=== PATIENT | female | born 1985 | race Caucasian/White ===

== ENCOUNTER → 2016-12-07 | Outpatient (CLI) | payer OTHER ==
[2016-12-07 18:13] LABS: BASO # 0.3 K/mm3 (0.0-0.2); EOS # 0.1 K/mm3 (0.0-0.50); LARGE UNSTAINED CELL # 0.1 K/mm3 (0.0-0.4); LARGE UNSTAINED CELL % 1.3 % (0.0-4.0); LYMPH # 1.5 K/mm3 (1.5-4.5); LYMPH % 15.8 % (24.0-44.0); MEAN CORPUSCULAR HEMOGLOBIN 27.9 pg (27.0-33.0); MEAN CORPUSCULAR HGB CONC 32.3 g/dl (32.0-36.5); MEAN CORPUSCULAR VOLUME 86.3 fl (80.0-96.0); MONO # 0.4 K/mm3 (0.0-0.8); NEUTROPHILS # 6.7 K/mm3 (1.8-7.7); NEUTROPHILS % 74.9 % (36.0-66.0); PLATELET COUNT, AUTOMATED 217 k/mm3 (150-450); RED CELL DISTRIBUTION WIDTH 14.8 % (11.5-14.5)
== END ==
LOC: M SMT 09:55
PROVIDERS: ATTEND Specialist
DX: Z34.82 Encounter for supervision of other normal pregnancy, second trimester (principal)

== ENCOUNTER → 2017-02-16 | Outpatient (REF) | payer OTHER | LOC: M LAB REF 17:06 | PROVIDERS: ATTEND Obstetrics & Gynecology | DX: Z34.83 Encounter for supervision of other normal pregnancy, third trimester (principal) ==

== ENCOUNTER 2017-03-11 13:11 | Inpatient (IN) | payer OTHER ==
[~2017-03-11] VITALS: Ht 167.6 cm; Wt 105.0 kg
[2017-03-11] MEDS ORDERED: OMEP40CA2 PO (13:24)
[2017-03-11] MEDS ORDERED: PRENTAB55 PO (13:24)
[2017-03-11] MEDS ORDERED: RANITAB PO (13:24)
[2017-03-11 13:32] VITALS: BP 128/82
[2017-03-11] MEDS ORDERED: PENICILLIN G POTASSIUM IV 5 MU in D5W MINI-BAG PLUS 100 ML IV STA (13:51)
--- NOTE | 2017-03-11 14:45 | HPE ---
DATE OF ADMISSION: 03/11/2017 Moon is a 31-year-old 2, para 0-0-1-0. She is at 39-6/7 weeks gestation with an estimated date of confinement (EDC) of 03/12/2017 based on first trimester ultrasound. She presents to labor and delivery today after an add-on visit at the obstetrical office for complaint of spontaneous rupture of membranes. She reports that she had a gush of fluid at 06:30 for a small amount of clear fluid and has continued to leak and trickle. She does report some mild cramping. She denies vaginal bleeding and her fetus has been active. care was initiated at [facility] in the first trimester. course complicated by Group B streptococcus (GBS) positive status. OBSTETRICAL HISTORY: July 2015 at 10 weeks she had a missed . OBSTETRICAL LABORATORIES: Blood type O+, antibody screen negative, rubella immune, VDRL nonreactive. Urine culture no growth. Hepatitis B surface antigen negative, HIV negative. Hepatitis C antibody nonreactive. Gonorrhea and chlamydia negative. Quad screen is normal. Gestational diabetic screening 118. GBS positive. PAST MEDICAL HISTORY: Seasonal allergies. Human papillomavirus condyloma. SURGERIES: None. FAMILY HISTORY: Noncontributory. SOCIAL HISTORY: The patient is . is at bedside and supportive. She was a smoker prior to and quit with a positive test. She denies alcohol and drug use. History of HPV genital warts. Denies history of abuse physical, sexual and emotional. ALLERGIES: No known drug allergies. CURRENT MEDICATIONS: - vitamin - omeprazole 20 mg daily OBJECTIVE: Temperature 98.9, pulse 96, respirations 20, blood pressure is 128/82. She is alert and oriented times three. She is in no apparent distress. Her abdomen is gravid, cephalic presentation. Estimated weight 7.5 to 8 pounds. heart rate is 140 with moderate variability, positive accelerations, no decelerations observed. There is an occasional rare contraction. Exam performed in the office by a Catherine Soler CNM, sterile speculum examination with positive pooling, positive Ferning, positive Nitrazine. Her sterile vaginal examination was a fingertip dilated, thick, and -3 station. ASSESSMENT: Intrauterine at 39-6/7 weeks with premature rupture of membranes. heart rate category 1. PLAN: Admit patient to labor and delivery. Start IV antibiotics for GBS prophylaxis. Misoprostol 50 mcg by mouth every 4 hours for cervical ripening. Labs as ordered. Out of bed ad kimberly. Regular diet at this time. I did review all risks and benefits to induction of labor/augmentation of labor including, but not limited to intolerance to labor, failed induction and increased risk for section. All of the patient and her 's questions have been answered and they desire to proceed with the induction/augmentation at this time. I do anticipate an active labor.
[2017-03-11] MEDS: miSOPROStol 50 MCG 1/2 TAB (S0191) PO SCH ×3 (14:49→23:07)
[2017-03-11 14:55] LABS: MEAN CORPUSCULAR HEMOGLOBIN 27.5 pg (27.0-33.0); MEAN CORPUSCULAR HGB CONC 33.3 g/dl (32.0-36.5); MEAN CORPUSCULAR VOLUME 82.6 fl (80.0-96.0); RED CELL DISTRIBUTION WIDTH 13.8 % (11.5-14.5); WHITE BLOOD COUNT 10.5 K/mm3 (4.0-10.0)
[2017-03-11] MEDS: PENICILLIN G POTASSIUM IV 2.5 MU in D5W 100 ML IV SCH ×2 (18:33→23:07)
[2017-03-11 19:12] VITALS: BP 113/76
[2017-03-11] MEDS ORDERED: diphenhydrAMINE 25 MG CAP PO PRN (20:15)
[2017-03-11 20:21] VITALS: BP 105/63
[2017-03-11 21:52] VITALS: BP 140/82
[2017-03-11 22:46] VITALS: BP 109/67
[2017-03-11 23:06] VITALS: BP 115/80
[2017-03-12] VITALS (41 sets, daily range): BP systolic 87–129; BP diastolic 50–76
[2017-03-12] MEDS ORDERED: FENTANYL 2MCG/ML ROPIVACAINE 0.2% IN 0.9% NACL 200ML IVBAG As Ordered ONE (01:44)
[2017-03-12] MEDS ORDERED: EPIDURAL/PCA KEYS XX PRN (02:50)
[2017-03-12] MEDS ORDERED: LACTATED RINGER'S 1000 ML IV PRN (02:50)
[2017-03-12] MEDS ORDERED: NALOXONE INJ 0.4 MG/1 ML VIAL (J2310) IV PRN ×3 (02:50→13:45)
[2017-03-12] MEDS ORDERED: diphenhydrAMINE INJ 50MG/ML VIAL (J1200) IV PRN (02:50)
[2017-03-12] MEDS ORDERED: FENTANYL/ROPIVACAINE/NACL BAG 200 ML EPIDURAL SCH (02:50)
[2017-03-12] MEDS ORDERED: ONDANSETRON 4MG/2ML VIAL (J2405) IV PRN ×3 (02:50→14:45)
[2017-03-12] MEDS ORDERED: REFRIGERATOR IV KEYS XX PRN (02:50)
[2017-03-12] MEDS ORDERED: EPIDURAL COMMENT XX SCH (02:50)
[2017-03-12] MEDS: PENICILLIN G POTASSIUM IV 2.5 MU in D5W 100 ML IV SCH ×3 (03:20→12:21)
[2017-03-12] MEDS: ePHEDrine SULFATE 25 MG/5 ML(5MG/ML) SYRINGE IV PRN ×3 (03:29→03:43)
[2017-03-12] MEDS ORDERED: OXYTOCIN DRIP 30 UNITS in APPROPRIATE DILUENT 1 EA IV SCH (04:15)
[2017-03-12] MEDS ORDERED: BICITRA 30ML SOLN UDC As Ordered ONE (12:54)
[2017-03-12] MEDS ORDERED: ceFAZolin 1GM INJ (J0690) As Ordered ONE (12:55)
[2017-03-12] MEDS ORDERED: ceFAZolin SOD 1 GM in D5W MINI-BAG PLUS 50 ML IV ONE (13:00)
[2017-03-12] MEDS ORDERED: BICITRA 30ML SOLN UDC PO ONE (13:00)
[2017-03-12] MEDS ORDERED: MORPHINE PRES-FREE INJ 10 MG/10 ML VIAL (J2274) As Ordered ONE (13:09)
[2017-03-12] MEDS ORDERED: OXYTOCIN INJ 10 UNITS/ML VIAL (J2590) As Ordered ONE (13:09)
[2017-03-12] MEDS ORDERED: LIDOCAINE 2% W/EPIN INJ 20ML **PRES FREE As Ordered ONE (13:17)
[2017-03-12] MEDS ORDERED: NALBUPHINE HCL 10 MG/ML AMP (J2300) IV PRN (13:45)
[2017-03-12] MEDS ORDERED: METOCLOPRAMIDE INJ 10MG/2ML VIAL (J2765) IV PRN (13:45)
[2017-03-12 13:46] LABS: CORD GAS ABE A -4.3; CORD GAS HCO3 A 22.1 MEQ/L; CORD GAS O2 SAT A 47.3 %; CORD GAS PCO2 A 45.2 mmHg; CORD GAS PH A 7.307 UNITS; CORD GAS PO2 A 23.4 mmHg; CORD GAS SBC A 19.7 MEQ/L; CORD GAS TCO2 A 23.5 MEQ/L
[2017-03-12 13:47] LABS: CORD GAS ABE V -0.7; CORD GAS HCO3 V 24.5 MEQ/L; CORD GAS O2 SAT V 66.6 %; CORD GAS PCO2 V 42.1 mmHg; CORD GAS PH V 7.382 UNITS; CORD GAS PO2 V 27.4 mmHg; CORD GAS SBC V 23.1 MEQ/L; CORD GAS TCO2 V 25.8 MEQ/L
[2017-03-12] MEDS: LR 1,000 ML IV SCH ×2 (14:43→22:43)
[2017-03-12] MEDS ORDERED: RHOGAM 300 MCG (1500 IU) INJ (J2790) IM SCH (14:45)
[2017-03-12] MEDS ORDERED: fentaNYL 100 MCG/2 ML INJECTION (J3010) IV PRN (14:45)
[2017-03-12] MEDS ORDERED: MOM 30ML SUSPENSION UDC PO PRN (14:45)
[2017-03-12] MEDS ORDERED: DOCUSATE SODIUM 100 MG CAP PO PRN (14:45)
[2017-03-12] MEDS ORDERED: KETOROLAC 30 MG/ML VIAL (J1885) IV PRN (14:45)
[2017-03-12] MEDS ORDERED: MEASLES,MUMPS,RUBELLA VACCINE INJ (MMR-II) (90707) SC SCH (14:45)
[2017-03-12] MEDS ORDERED: PERCOCET 5MG/325MG TAB PO PRN ×2 (14:45)
[2017-03-12] MEDS ORDERED: OXYC1TAB23 PO (14:46)
[2017-03-12] MEDS ORDERED: IBUP800T23 PO (14:47)
[2017-03-12] MEDS ORDERED: OXYTOCIN DRIP 30 UNITS in APPROPRIATE DILUENT 1 EA IV ONE (15:00)
[2017-03-12] MEDS: KETOROLAC 30 MG/ML VIAL (J1885) IV SCH (21:00)
[2017-03-13 01:52] VITALS: BP 117/67
[2017-03-13] MEDS: KETOROLAC 30 MG/ML VIAL (J1885) IV SCH ×3 (03:18→15:11)
[2017-03-13 05:54] VITALS: BP 118/69
--- NOTE | 2017-03-13 06:16 | RO ---
DATE OF PROCEDURE: 03/12/2017 PREOPERATIVE DIAGNOSIS: Inability to augment labor with category 3 tracing. POSTOPERATIVE DIAGNOSIS: Inability to augment labor with category 3 tracing. PROCEDURE PERFORMED: Primary lower transverse section. SURGEON: Katalina Felton MD TRANSCRIPT EVALUATOR: Hudson Dow DO STUDENT: Clint Pete, OSIII ANESTHESIA: Epidural. ESTIMATED BLOOD LOSS: 400 mL. URINE OUTPUT: 50 mL. INTRAVENOUS FLUIDS: 1100 mL of lactated Ringer solution. PREOPERATIVE ANTIBIOTICS: 1 gram of Ancef. FINDINGS: Liveborn female infant. score 8 and 9. Weight was 3494 grams or 7 pounds 11 ounces. Cord gases 7.3, 7.38 with base excess of -4.3 and -0.7. INDICATION FOR OPERATION: This patient is a 31-year-old, 1, who presented with spontaneous rupture of membranes that occurred 6:30 a.m. on 03/11/2017. This fluid was later noted to be meconium stained amniotic fluid. Her labor was augmented with pitocin and secondary to repetitive late decelerations augmentation was discontinued several times. Her cervix at the time of final assessment was 7 cm dilation. At which time, she had a category 3 heart tracing with repetitive late decelerations with minimal variability. Decision was made to discontinue augmentation and patient was consented for a primary section with above indication. DESCRIPTION OF OPERATION: After informed consent was obtained and written consent was reviewed, the patient was brought to the operating room where she was prepped and draped in a normal sterile fashion. A time-out in the operating room was then performed, identifying the patient, procedure to be performed, as well as drug allergies. A Conner catheter had been placed previously and set to gravity. Anesthesia was then tested and deemed to be adequate. A Pfannenstiel skin incision was then made and carried down to the underlying rectus fascia. The fascia was then scored and this incision was extended bilaterally. The fascia was then dissected off the underlying rectus muscles both superiorly and inferiorly. The rectus muscles were then in the midline. The peritoneum was then entered. The vesicouterine peritoneum was then identified. It was tented and excised creating a bladder flap. A bladder blade was then placed to retract back the bladder. Curvilinear incision was then made in the lower uterine segment. This incision was extended. The head was brought to the level of the incision atraumatically, followed by delivery of shoulders and corpus. The cord was then clamped times two and was cut. Infant was taken over to the warmer with a good cry. Cord gases and cord blood was obtained. Placenta was then drained and delivered grossly intact. The uterus was then exteriorized and cleared of all clots and debris. The uterine incision was then closed using #0 Vicryl in two layers, first layer in a running locking fashion, followed by a second layer for imbrication in a running nonlocking fashion. The abdomen was then suctioned. The uterus was returned to the patient's abdomen. It was once again inspected and noted to be hemostatic. The anterior peritoneum was then reapproximated with #3-0 Vicryl. The rectus muscles were reapproximated with #3-0 Vicryl. The fascia was then closed with #0 Vicryl in a running nonlocking fashion. The subcutaneous tissue was then irrigated and suctioned. The subcutaneous tissue was then reapproximated using #3-0 Vicryl. Several subdermal stitches were placed with #3-0 Vicryl and the skin was closed with #4-0 Monocryl in a subcuticular fashion. The incision was then cleaned and dry. Mastisol was applied above and below the incision. Steri-Strips were applied over the incision. The incision was dressed. The patient was then taken to recovery in stable condition. Counts were correct. Edited: 03/13/2017 0618 gloria ROMERO
[2017-03-13 06:30] LABS: MEAN CORPUSCULAR HEMOGLOBIN 27.9 pg (27.0-33.0); MEAN CORPUSCULAR HGB CONC 33.1 g/dl (32.0-36.5); MEAN CORPUSCULAR VOLUME 84.4 fl (80.0-96.0); RED CELL DISTRIBUTION WIDTH 13.9 % (11.5-14.5)
[2017-03-13] MEDS: LR 1,000 ML IV SCH ×3 (06:43→22:43)
[2017-03-13] MEDS ORDERED: ADACEL/BOOSTRIX VACCINE (DIPHTH/PERTUSS/ACELL/TETANUS)0.5ML SYR (90715) IM ONE (09:00)
[2017-03-13] MEDS ORDERED: INFLUENZA QUADRIVALENT PF VACCINE 0.5ML SYRINGE/VIAL (90686) IM ONE (09:00)
[2017-03-13 10:09] VITALS: BP 106/72
[2017-03-13] MEDS: PRENATAL VITAMIN TAB PO SCH (10:22)
[2017-03-13 14:05] VITALS: BP 135/74
[2017-03-13 17:35] VITALS: BP 118/68
[2017-03-13 21:38] VITALS: BP 123/74
[2017-03-13] MEDS: IBUPROFEN 800 MG TAB PO SCH (23:07)
[2017-03-14 05:46] VITALS: BP 111/66
[2017-03-14] MEDS: LR 1,000 ML IV SCH (06:43)
[2017-03-14] MEDS: IBUPROFEN 800 MG TAB PO SCH ×2 (07:28→15:14)
[2017-03-14] MEDS: PRENATAL VITAMIN TAB PO SCH (08:53)
[2017-03-14] MEDS ORDERED: INFLUENZA QUADRIVALENT PF VACCINE 0.5ML SYRINGE/VIAL (90686) IM ONE (09:00)
--- NOTE | 2017-03-14 13:47 | DSES ---
DATE OF ADMISSION: 03/11/2017 DATE OF DISCHARGE: 03/14/2017 DISCHARGE DIAGNOSIS: Primary lower transverse section for inability to augment her labor with category 3 heart rate tracing. DISCHARGE CONDITION: Stable. PROCEDURES PERFORMED WHILE IN THE HOSPITAL: 1. Epidural. 2. section. HISTORY AND HOSPITAL COURSE: This patient is a 31-year-old 1, who presented with premature rupture of membranes that occurred on 03/10/2017. Her labor was augmented with Pitocin. She was ultimately consented for a primary lower transverse section for category 3 tracing. Her surgery was uncomplicated, productive of a liveborn female . scores 8 and 9, 7 pounds 11 ounces, cord gas was 7.38, base excess was -4.3 and -0.7 respectively. She did well postoperatively and by postoperative day #2, had met all discharge criteria and was discharged home in stable condition. On physical exam on day of discharge, her vital signs were stable. She was afebrile. General appearance was well appearing, no acute distress. Her abdomen was soft, nondistended. Fundus was below umbilicus. Incision was clean, dry, intact, well approximated, non-erythemic. Extremities negative for calf tenderness. DISCHARGE MEDICATIONS: Ibuprofen and Percocet. DISCHARGE INSTRUCTIONS: 1. She was instructed to remain on pelvic rest for 6 weeks. 2. To report severe pain, fever, incisional issues or heavy bleeding. 3. She will followup for incision check in 2 weeks. NICK
[2017-03-14] MEDS ORDERED: COLA100C3 PO (15:48)
[2017-03-14] MEDS ORDERED: MOM30SS PO (15:49)
== END 2017-03-14 16:10 | disposition home or self-care (01) | DRG 766 ==
LOC: M LDI 13:11 → M OBS 03-12 16:06
PROVIDERS: ADMIT Advanced Practice Midwife; ATTEND Advanced Practice Midwife
PROC: 3E0DXGC Introduction of Other Therapeutic Substance into Mouth and Pharynx, External Approach (ICD-10-PCS; 2017-03-11)
PROC: 10D00Z1 Extraction of Products of Conception, Low, Open Approach (ICD-10-PCS; principal; 2017-03-12 13:24)
DX: O42.02 Full-term premature rupture of membranes, onset of labor within 24 hours of rupture (principal); Z37.0 Single live birth; Z3A.39 39 weeks gestation of pregnancy; O99.820 Streptococcus B carrier state complicating pregnancy; Z87.891 Personal history of nicotine dependence; O61.0 Failed medical induction of labor

== ENCOUNTER → 2017-06-24 | Outpatient (CLI) | payer OTHER ==
[~2017-06-24] MED LIST: COLA100C5 PO; IBUP1TAB7 PO; MOM30SS PO; OMEP40CA2 PO; OXYC1TAB23 PO; PRENTAB55 PO; RANITAB PO
== END ==
LOC: M SMT 10:23
PROVIDERS: ATTEND Advanced Practice Midwife
DX: N91.2 Amenorrhea, unspecified (principal)

== ENCOUNTER → 2017-06-26 | Outpatient (CLI) | payer OTHER | LOC: M LAB 11:09 | PROVIDERS: ATTEND Advanced Practice Midwife | DX: N91.2 Amenorrhea, unspecified (principal) ==

== ENCOUNTER → 2017-06-29 | Outpatient (CLI) | payer OTHER | LOC: M LAB 12:41 | PROVIDERS: ATTEND Advanced Practice Midwife | DX: N91.2 Amenorrhea, unspecified (principal) ==

== ENCOUNTER → 2017-07-08 | Outpatient (REF) | payer OTHER | LOC: M LAB REF 08:49 | PROVIDERS: ATTEND Internal Medicine | DX: Z32.01 Encounter for pregnancy test, result positive (principal) ==

== ENCOUNTER → 2017-07-22 | Outpatient (CLI) | payer OTHER ==
[2017-07-22 19:38] LABS: BASO % 0.3 % (0.0-1.0); EOS % 0.6 % (0.0-3.0); LARGE UNSTAINED CELL # 0.1 K/mm3 (0.0-0.4); LYMPH # 1.9 K/mm3 (1.5-4.5); LYMPH % 27.3 % (24.0-44.0); MEAN CORPUSCULAR HEMOGLOBIN 25.3 pg (27.0-33.0); MEAN CORPUSCULAR HGB CONC 31.7 g/dl (32.0-36.5); MEAN CORPUSCULAR VOLUME 79.9 fl (80.0-96.0); MONO # 0.4 K/mm3 (0.0-0.8); MONO % 5.7 % (0.0-5.0); NEUTROPHILS # 4.4 K/mm3 (1.8-7.7); NEUTROPHILS % 64.1 % (36.0-66.0); PLATELET COUNT, AUTOMATED 241 k/mm3 (150-450); RED CELL DISTRIBUTION WIDTH 14.1 % (11.5-14.5); WHITE BLOOD COUNT 6.9 K/mm3 (4.0-10.0)
[2017-07-23 14:32] LABS: HBsAg Prenatal NEGATIVE (NEGATIVE)
== END ==
LOC: M LAB 16:51
PROVIDERS: ATTEND Advanced Practice Midwife
DX: Z34.81 Encounter for supervision of other normal pregnancy, first trimester (principal)

== ENCOUNTER → 2017-10-13 | Outpatient (CLI) | payer OTHER ==
--- NOTE | 2017-10-14 08:10 | REP ---
COMPLETE OBSTETRICAL ULTRASOUND: COMPARISON: None. FINDINGS: Ultrasound examination demonstrates a single live intrauterine in transverse lie with head toward the maternal right side. motion was identified by technologist. The placenta is noted posteriorly and grade 0 without evidence for placenta previa or abruption. Cervix measures 4.9 cm in length and appears closed. No evidence for nuchal cord. Gestational age by LMP 20 weeks 0 days with estimated date of delivery 03/02/2018. Gestational age by current measurements 19 weeks 6 days with estimated date of delivery 03/03/2018. FHR 150 beats per minute. BPD 4.5 cm 19 weeks 4 days HC 16.6 cm 19 weeks 2 days AC 14.8 cm 20 weeks 0 days FL 3.2 cm 19 weeks 6 days HL 3.1 cm 20 weeks 3 days HC/AC ratio 1.12. Estimated weight 320 grams (49th percentile). Anatomical assessment is complete and normal. Visualized structures include cranium, choroid plexus, cavum, cerebellum/posterior fossa, facial features, lungs, four chamber heart/ventricular outflow tracts, diaphragm, stomach, cord insertion/three vessel cord, kidneys/bladder, spine and extremities. IMPRESSION: Single live intrauterine in transverse lie demonstrating appropriate interval growth. Anatomical assessment is complete and normal. No gross abnormalities are identified. Signed by Grzegorz Mcclain MD 10/15/2017 07:55 A
== END ==
LOC: M RAD 10:47
PROVIDERS: ATTEND Specialist
DX: Z36.89 Encounter for other specified antenatal screening (principal); Z3A.20 20 weeks gestation of pregnancy

== ENCOUNTER 2017-11-24 21:41 | Emergency (ER) | payer OTHER ==
[2017-11-25] MEDS: ONDANSETRON 4 MG TAB (S0181) PO (00:03)
[2017-11-25] MEDS: PERCOCET 5MG/325MG TAB PO (00:04)
== END 2017-11-25 00:19 | disposition home or self-care (01) ==
LOC: M ED 11-25 00:19
DX: O99.89 Other specified diseases and conditions complicating pregnancy, childbirth and the puerperium (principal); M65.4 Radial styloid tenosynovitis [de Quervain]; Z3A.24 24 weeks gestation of pregnancy
CPT/HCPCS: 99284

== ENCOUNTER → 2017-11-30 | Outpatient (CLI) | payer OTHER ==
[2017-11-30 17:37] LABS: BASO % 0.2 % (0.0-1.0); EOS # 0.1 10^3/uL (0.0-0.50); EOS % 0.8 % (0.0-3.0); HEMATOCRIT 35.9 % (36.0-47.0); HEMOGLOBIN 11.6 g/dl (12.0-16.0); IMMATURE GRANULOCYTE # 0.1 10^3/uL (0-0); IMMATURE GRANULOCYTE % 0.6 % (0-0); LYMPH % 22.8 % (24.0-44.0); MEAN CORPUSCULAR HEMOGLOBIN 26.5 pg (27.0-33.0); MEAN CORPUSCULAR HGB CONC 32.3 g/dl (32.0-36.5); MEAN CORPUSCULAR VOLUME 82.2 fl (80.0-96.0); MONO # 0.6 10^3/uL (0.0-0.8); MONO % 7.1 % (0.0-5.0); NEUTROPHILS % 68.5 % (36.0-66.0); PLATELET COUNT, AUTOMATED 242 10^3/uL (150-450); RED BLOOD COUNT 4.37 10^6/uL (4.00-5.40); RED CELL DISTRIBUTION WIDTH 14.4 % (11.5-14.5); WHITE BLOOD COUNT 8.7 10^3/uL (4.0-10.0)
[2017-11-30 18:08] LABS: GLUCOSE CHALLENGE TEST 1 HOUR 121 MG/DL (LESS THAN 140)
== END ==
LOC: M SMT 13:11
DX: Z34.82 Encounter for supervision of other normal pregnancy, second trimester (principal); Z36.89 Encounter for other specified antenatal screening
CPT/HCPCS: 82950

== ENCOUNTER → 2017-12-31 | Outpatient (REF) | payer OTHER | LOC: M LAB REF 12:57 | DX: Z34.83 Encounter for supervision of other normal pregnancy, third trimester (principal) ==

== ENCOUNTER → 2018-01-31 | Outpatient (REF) | payer OTHER | LOC: M LAB REF 17:16 | DX: Z34.83 Encounter for supervision of other normal pregnancy, third trimester (principal); Z36.89 Encounter for other specified antenatal screening | CPT/HCPCS: 87081; 87186 ==